=== PATIENT | female | born 1975 | race Native Hawaiian/Other Pacific Islander ===

== ENCOUNTER 2020-02-25 08:09 | Day surgery (SDC) | payer OTHER ==
--- NOTE | 2020-02-24 07:39 | History and Physical Report ---
History of Present Illness Date of examination: 02/23/20 Chief complaint: Undesired Fertility History of present illness: Pt is a 44 year old presents for surgical sterilization. She is aware of long acting reversible contraceptives and desires to proceed. 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 (h/o ovarian cyst, no surgical intervention ) Family/Genetic History: diabetes, hypertension, stroke Social history: no significant social history, - Obstetrical History : 3 Para: 3 Hx # Term Pregnancies: 3 Number of Pregnancies: 0 Spontaneous Abortions: 0 Induced : 0 Number of Living Children: 3 Medications and Allergies Allergies Allergy/AdvReac Type Severity Reaction Status Date / Time No Known Allergies Allergy Unverified 02/19/20 09:37 Home Medications Medication Instructions Recorded Confirmed Last Taken Type Terbinafine HCl [LamiSIL] 250 mg PO DAILY 02/19/20 02/19/20 Unknown History Active Meds: Active Medications Lactated Ringer's (Lactated Ringers) 1,000 mls @ 75 mls/hr IV DIRECT SHADI Cefazolin Sodium (Ancef/Sterile Water 2 Gm/20 Ml) 2 gm in 20 mls @ 80 mls/hr IV PREOP NR; Protocol Review of Systems All systems: negative - Physical Exam Breasts: Positive: deferred Abdomen: Positive: soft Extremities: Positive: normal Results All other labs normal. Assessment and Plan A: Undesired Fertility P: Proceed with laparoscopic bilateral tubal ligation and other indicated procedures
[~2020-02-25 08:09] MED LIST: ACETAMINOPHEN 500 MG TAB PO SCH; BUPIVACAINE/PF (0.5%) 5 MG/1 ML 30 ML VIAL INFILTRATI ONE; GABAPENTIN 300 MG CAP PO NR; LACTATED RINGERS 1,000 ML IV SCH; MIDAZOLAM 2 MG/2 ML INJ IV NR; ceFAZolin/Water 2 GM/20 ML 2 GM/20 ML SYRINGE IV NR
--- NOTE | 2020-02-25 09:02 | Anesthesia Consultation ---
Anesthesia Consult and Med Hx Date of service: 02/25/20 - Airway Anesthetic Teeth Evaluation: Good ROM Head & Neck: Adequate Mental/Hyoid Distance: Adequate Mallampati Class: Class III Intubation Access Assessment: Possibly Difficult - Pulmonary Exam CTA: Yes - Cardiac Exam Cardiac Exam: RRR - Pre-Operative Health Status ASA Pre-Surgery Classification: ASA1 Proposed Anesthetic Plan: General - Pulmonary Hx Smoking: No Hx Respiratory Symptoms: No - Cardiovascular System Hx Hypertension: No - Central Nervous System CVA: No - Endocrine Hx Renal Disease: No Hx Liver Disease: No Hx Insulin Dependent Diabetes: No Hx Non-Insulin Dependent Diabetes: No Hx Thyroid Disease: No - Other Systems Hx Obesity: No - Additional Comments Anesthesia Medical History Comments: No hx anesthetic complications.
[2020-02-25] MEDS ORDERED: ONDANSETRON 4 MG/2 ML INJ IV PRN (09:03)
--- NOTE | 2020-02-25 09:03 | Anesthesia Day of Surgery ---
Anesthesia Day of Surgery - Day of Surgery Patient Examined: Yes Patient H&P Reviewed: Yes Patient is NPO: Yes
[2020-02-25 09:33] LABS: Mean Corpuscular HGB Conc 36 % (30-34); Mean Corpuscular Volume 91 fl (79-97); Platelet Count 201 K/mm3 (140-440); Red Blood Count 4.11 M/mm3 (3.65-5.03); Red Cell Distribution Width 12.8 % (13.2-15.2)
[2020-02-25] MEDS ORDERED: ONDANSETRON 4 MG/2 ML INJ ONE (09:35)
[2020-02-25] MEDS ORDERED: propofoL 200 MG/20 ML VIAL IV ONE (09:35)
[2020-02-25] MEDS ORDERED: dexAMETHasone 20 MG/5 ML VIAL ONE (09:35)
[2020-02-25] MEDS ORDERED: LIDOCAINE MPF (2%) 20 MG/1 ML VIAL 5 ML ONE (09:35)
[2020-02-25] MEDS ORDERED: fentaNYL 100 MCG/2 ML INJ ONE (09:35)
[2020-02-25 09:37] LABS: Hematocrit 37.3 % (30.3-42.9); Hemoglobin 13.5 gm/dl (10.1-14.3)
[2020-02-25] MEDS ORDERED: SILVER NITRATE APPLICATOR 1 EA TP ONE (10:28)
[2020-02-25] MEDS ORDERED: ROCURONIUM 50 MG/5 ML INJ IV ONE (10:30)
[2020-02-25] MEDS ORDERED: BUPIVACAINE/PF (0.5%) 5 MG/1 ML 30 ML VIAL INFILTRATI ONE ×2 (10:32)
[2020-02-25] MEDS ORDERED: NEOSTIGMINE 10MG/10 ML INJ MDV ONE (10:33)
[2020-02-25] MEDS ORDERED: GLYCOPYRROLATE 0.4 MG/2 ML INJ ONE (10:33)
--- NOTE | 2020-02-25 10:43 | Operative Report ---
Operative Report Operative Report: Date of procedure: February 25, 2020 Preoperative diagnosis: 1) Multiparity desires permanent sterilization Postoperative diagnosis: Same Procedure: Laparoscopic bilateral tubal ligation via Filshie clip method Surgeon: Luna Brand M.D. Anesthesia: General endotracheal anesthesia Findings: 1) Small anteverted uterus with IUD strings visible at external cervical os 2) Normal appearing uterus, ovaries and tubes Estimated blood loss: 5 mL Urine output: 75 mL clear prior to the procedure Specimens: None Complications: None. Counts correct 2 Disposition: Stable to PACU Indications for procedure: This patient is a 44 year old female who presents for surgical sterilization. She is aware of long acting reversible contraceptives and desires to proceed. Operation in detail: After the risks, benefits, alternatives and complications of the procedure were explained to the patient, she gave informed consent for the procedure. She was subsequently taken to the operating room with her IV noted to be running and placed in the dorsal supine position with sequential compression devices functioning. General endotracheal anesthesia was then induced without difficulty. An exam under anesthesia was then performed yielding a small anteverted uterus. The patient was then placed in placement dorsal lithotomy position and prepped and draped in normal sterile fashion. A timeout was then performed. The bladder was then drained of urine yielding 75 mL of clear urine. An open sided speculum was placed into the vagina for visualization of the cervix. A single-tooth tenaculum was placed on the anterior lip of the cervix for traction. A uterine manipulator was then placed. The single-tooth tenaculum and speculum were then removed from the vagina. The surgeon's gloves were then changed. Attention was then turned to entry into the abdominal cavity. A 5 mm infraumbilical incision was made with an 11 blade. The skin was grasped on either side of the umbilicus and tented up. The Veres needle was placed into the peritoneal cavity, confirmed with a saline drop test. The abdomen was then insufflated with CO2 gas to a pressure of 15 mmHg. A 5 mm Visiport trocar was then placed. An anatomic survey was then performed with findings as indicated above. A second incision was created 4 cm superior to the pubic symphysis in the midline measuring 8 mm. An 8 mm trocar was then placed into the abdomen under direct visualization. The patient was placed in the Trendelenburg position. The uterus was elevated, and two Filshie clips were then placed across the right and left fallopian tubes. At this time, all instruments were removed from the abdominal cavity. The pneumoperitoneum was released. The trocars were removed. The incisions were then infiltrated with half percent Marcaine. The incisions were then reapproximated with 4-0 Vicryl in a subcuticular fashion, then covered with skin glue. All instruments were then removed atraumatically from the vagina. At this time the procedure was ended. The patient was placed into the dorsal supine position and extubated without difficulty. She was subsequently taken to the PACU in stable condition. All instrument, needle and lap counts were correct 2.
--- NOTE | 2020-02-25 10:48 | Short Stay Summary ---
Short Stay Documentation Date of service: 02/25/20 - History H&P: dictated Social history: no significant social history, - Allergies and Medications Current Medications: Allergies No Known Allergies Allergy (Unverified 02/19/20 09:37) Home Medications Medication Instructions Recorded Confirmed Last Taken Type Terbinafine HCl [LamiSIL] 250 mg PO DAILY 02/19/20 02/25/20 02/23/20 08:00 History Active Medications Acetaminophen (Tylenol) 1,000 mg PO PREOP SHADI Stop: 02/25/20 16:00 Last Admin: 02/25/20 09:20 Dose: 1,000 mg Documented by: Gabapentin (Gabapentin) 600 mg PO PREOP NR Stop: 02/25/20 18:00 Last Admin: 02/25/20 09: Dose: 600 mg Documented by: Hydromorphone HCl (Dilaudid) 0.5 mg IV Q10MIN PRN PRN Reason: Pain , Severe (7-10) Stop: 02/25/20 23:00 Cefazolin Sodium (Ancef/Sterile Water 2 Gm/20 Ml) 2 gm in 20 mls @ 80 mls/hr IV PREOP NR; Protocol Stop: 02/25/20 20:00 Lactated Ringer's (Lactated Ringers) 1,000 mls @ 100 mls/hr IV DIRECT SHADI Stop: 02/25/20 23:59 Last Admin: 02/25/20 09:25 Dose: 100 mls/hr Documented by: Midazolam HCl (Versed) 2 mg IV PREOP NR Stop: 02/25/20 23:00 Ondansetron HCl (Zofran) 4 mg IV ONCE PRN PRN Reason: Nausea And Vomiting Stop: 02/25/20 16:00 - Physical exam Breasts: deferred - Brief post op/procedure progress note Date of procedure: 02/25/20 Pre-op diagnosis: Undesired Fertility Post-op diagnosis: same Procedure: Laparoscopic bilateral tubal ligation Anesthesia: GETA Findings: 1) Small anteverted uterus with IUD strings visible at external cervical os 2) Normal appearing uterus, ovaries and tubes Surgeon: FADY BRIGHT Estimated blood loss: minimal (5 mL) Pathology: none Condition: stable - Hospital course Hospital course: Pt underwent bilateral tubal ligation which she tolerated well. She was observed in the PACU until she met discharge criteria. She will follow up in the office in 2 weeks. - Disposition Condition at discharge: Stable Disposition: DC-01 TO HOME OR SELFCARE - Discharge Diagnoses (1) Encounter for sterilization Status: Acute Short Stay Discharge Plan Activity: other (Nothing in vagina, no intercourse, no tub baths for 4 weeks) Weight Bearing Status: Full Weight Bearing Diet: regular Follow up with: LIZETTE MENDOZA MD [Primary Care Provider] - 7 Days FADY BRIGHT MD [Staff Physician] - 14 Days (Please call to make an incision check appt ) Prescriptions: Docusate Sodium [Colace] 100 mg PO BID PRN #60 capsule PRN Reason: Constipation Ibuprofen [Motrin] 800 mg PO Q8HR PRN #30 tablet PRN Reason: Pain, Moderate (4-6) oxyCODONE /ACETAMINOPHEN [Percocet 5/325] 1 tab PO Q6HR PRN #30 tablet PRN Reason: Pain , Severe (7-10)
[2020-02-25] MEDS: HYDROmorphone 1 MG/1 ML INJ IV PRN ×2 (11:00→11:20)
[2020-02-25 11:30] VITALS: BP 133/69
[2020-02-25] MEDS ORDERED: KETOROLAC 30 MG/1 ML INJ IV ONE (12:00)
--- NOTE | 2020-02-25 12:07 | Post Anesthesia Evaluation ---
- Post Anesthesia Evaluation Patient Participated: Yes Airway Patent: Yes Stable Respiratory Function: Yes Nausea/Vomiting: No Temp > 96.8F: Yes Pain Manageable: Yes Adequeate Hydration: Yes Anesthesia Complications: No
== END 2020-02-25 08:10 | disposition home or self-care (01) ==
LOC: OR 08:09
PROVIDERS: ATTEND Obstetrics & Gynecology
DX: Z30.2 Encounter for sterilization (principal); G43.909 Migraine, unspecified, not intractable, without status migrainosus; Z79.899 Other long term (current) drug therapy; Z98.890 Other specified postprocedural states
CPT/HCPCS: 36415; 58671; 81025; 85027; 86850; 86900; 86901; J0690; J1100; J1170; J1885; J2405; J2704; J2710; J3010; J7120; J2250

== ENCOUNTER 2021-10-26 08:31 | Outpatient (CLI) | payer OTHER ==
[2021-10-26 12:46] LABS: Alanine Aminotransferase 145 units/L (7-56); Albumin 4.6 g/dL (3.9-5); Chol/HDL Ratio 5.53 %; HDL Cholesterol 41 mg/dL (40-59); LDL Cholesterol,Direct 138 mg/dL (50-130)
[2021-10-26 13:00] LABS: Bilirubin,Direct < 0.2 mg/dL (0-0.2)
== END 2021-10-26 08:32 | disposition home or self-care (01) ==
LOC: LABHHL 08:31
PROVIDERS: ATTEND Internal Medicine
DX: E78.5 Hyperlipidemia, unspecified (principal)
CPT/HCPCS: 36415; 80061; 80076